=== PATIENT | female | born 1970 | race Caucasian/White ===

== ENCOUNTER → 2019-12-09 08:06 | Outpatient (CLI) | payer MEDICAID, SELFPAY ==
--- NOTE | 2019-12-09 | FLU_PTH ---
PATIENT: JEAN PAUL GONZALEZ LOC: [facility] U#:[id number] AGE/SX: 55/F ROOM: RE12/09/[address]: Dr. Ro Lazo MD : 1970 BED: DIS: SPEC #: [id number] RECD: 12/09/19 17:05 STATUS: JANELLE REWilmer #: [id number] SID: 12/09/19 00:[address]: Ro Lazo DEPT: CYTOLOGY RECD BY: Júnior [place] ENTERED: 12/12/19 13:30 SP TYPE: Fluid OTHR DR: Dr. Antoine Lane DO Tissues: A - Thyroid gland, NOS B - Thyroid gland, NOS Procedures: Special Stain Group II Surgery Specimen Level IV Cytospin Fluid HEADER OPERATION: Ultrasound-guided fine needle aspiration of right thyroid PRE-OP DIAGNOSIS: Thyroid nodules TISSUE SUBMITTED: A - FNA right thyroid for cytology, B - FNA right thyroid slides x8 DIAGNOSIS CYTOLOGY A. Right thyroid nodule fluid, FNA (cytospin and cell block): Benign follicular cells noted. B. Right thyroid nodule, FNA (smears): Consistent with benign colloid nodule. Adequate for evaluation. See comment. DEAN:carolyn 12/13/19 COMMENT Correlation with clinical, radiologic findings and appropriate follow up are necessary. CYTOLOGY STUDY Slides are reviewed. CYTOLOGY GROSS A - Received is 35 ml of clear colorless fluid labeled with the patient's name and and designated per the requisition as right thyroid. Submitted for cytology preparation including cell block. B - Received are eight smears labeled with the patient's name and designated per the requisition as right thyroid. Submitted for staining. / carolyn 12/12/19 TC:5 CPT: 76726, 12361, 03717
== END ==
PROVIDERS: PCP Preventive Medicine Occupational Medicine; Referring Provider Surgery; Visit Provider Surgery
DX: E04.1 Nontoxic single thyroid nodule (principal)
CPT/HCPCS: 88108; 88305; 88313

== ENCOUNTER → 2025-05-24 | Outpatient (CLI) | payer MEDICAID, SELFPAY ==
[2025-05-24 18:33] LABS: Creatinine, Urine (random) 165.00 mg/dL (28.00-217.00); Protein, Urine (Random) 35.9 mg/dL (0.0-12.0); Protein:Creat Ratio 218 mg/g CRE (0-200)
== END | disposition home or self-care (01) ==
PROVIDERS: PCP Preventive Medicine Occupational Medicine; Referring Provider Internal Medicine Nephrology; Visit Provider Internal Medicine Nephrology
DX: N18.31 Chronic kidney disease, stage 3a (principal)
CPT/HCPCS: 82570; 84156